=== PATIENT | female | born 1950 | race Caucasian/White ===

== ENCOUNTER 2017-04-21 12:56 | Emergency (ER) | payer OTHER ==
[~2017-04-21] VITALS: Ht 157.5 cm; Wt 110.3 kg
[2017-04-21 12:59] VITALS: Ht 157.5 cm; Wt 110.3 kg
[2017-04-21] MEDS ORDERED: SODI126M NASAL (13:58)
[2017-04-21] MEDS ORDERED: IBUP-1542 PO (13:58)
[2017-04-21] MEDS ORDERED: GUAI473L22 PO (13:58)
--- NOTE | 2017-04-21 14:16 | ERD ---
ER Documentation Chief Complaint Chief Complaint cough x 1 week HPI 66-year-old female complaining of cough 1 week. Patient stated the cough is productive, worse at night. She is unable to sleep because of cough. Patient also reports several episodes of posttussive vomiting. She has chills and body pain. Took ibuprofen 4 days ago. Patient also reports decreased appetite. Patient stated that she feels fatigued while walking since onset of symptoms. Denies shortness of breath. Denies abdominal pain, vomiting, or diarrhea. Denies history of asthma, diabetes, or other medical conditions. ROS All systems reviewed and are negative except as per history of present illness. Medications Home Meds Active Scripts Guaifenesin-Codeine Phosphate* (Guaifenesin* AC Cough Syrup) 473 Ml Liquid, 10 ML PO Q4H Y for COUGH, #120 ML Prov:CHEVY RIVERA. SYSTEMS QA ANALYST 04/21/17 Sodium Chloride (Saline Nasal Mist) 126 Ml Mist, 2 SPRAY NASAL Q2H Y for NASAL CONGESTION, #1 BOTTLE Prov:CHEVY RIVERA. SYSTEMS QA ANALYST 04/21/17 Ibuprofen* (Motrin*) 600 Mg Tab, 600 MG PO Q6H Y for PAIN AND OR ELEVATED TEMP, #30 TAB Prov:CHEVY RIVERA. SYSTEMS QA ANALYST 04/21/17 PMhx/Soc Medical and Surgical Hx: pt denies Medical Hx Physical Exam Vitals Vital Signs Date Time Temp Pulse Resp B/P Pulse Ox O2 Delivery O2 Flow Rate FiO2 04/21/17 12:59 99.0 78 18 186/94 97 Physical Exam General: Well-developed, well-nourished, conscious and coherent, in no distress Skin: Warm and dry without rash, good texture and turgor Head: Normocephalic without evidence of trauma Eyes: Sclera and conjunctivae normal; pupils equal, round, and reactive to light; extraocular movements are intact Ears: Canals are patent. Tympanic membranes are clear Nose/Face: Nasal mucosa erythematous and swollen. Mouth/throat: Mucous membranes are moist. Posterior pharynx mildly erythematous without exudates Neck: Supple without meningismus or adenopathy. Carotids are equal. Trachea midline. No bruits or JVD Chest: Normal AP diameter. Good expansion without retractions. Nontender. Lungs are clear to auscultate bilaterally with good tidal volume Heart: Regular rate and rhythm. No murmur, rub, or gallops heard Abdomen: Soft and nontender without masses, guarding, or rebound. Bowel sounds are active. No hepatosplenomegaly Back: Without spinal or CVA tenderness Pelvis: Nontender to palpation and stable to compression Extremities: Full range of motion. Good strength bilaterally. No clubbing, cyanosis, or edema. Peripheral pulses are intact. Sensation intact Neuro: Alert and oriented 4, GCS 15. Cranial nerves grossly intact. Motor and sensory exams nonfocal. Moves all extremities. Speech clear. Gait normal Procedures/MDM Well-appearing 66-year-old female presented ED with cough 1 week. Patient is afebrile, in no respiratory distress. Lungs are clear to auscultate. I doubt that patient has pneumonia or bronchitis. Likely patient's symptoms are result of viral upper respiratory infection. I cannot rule out flu. However, patient had symptoms for 1 week, I do not feel Tamiflu is indicated. Patient appears well, stable for discharge and outpatient management. Medical decision making shared with patient and family. Education provided to patient and family. Patient and family expressed understanding of the plan. Medications on discharge: Ibuprofen, saline nasal spray, guaifenesin with codeine. Follow-up: Primary care provider in 2-3 days or return to ED if worse. Disclaimer: Inadvertent spelling and grammatical errors are likely due to EHR/ dictation software use and do not reflect on the overall quality of patient care. Also, please note that the electronic time recorded on this note does not necessarily reflect the actual time of the patient encounter. Departure Diagnosis: Primary Impression: URI (upper respiratory infection) URI type: acute nasopharyngitis (common cold) Qualified Code: J00 - Acute nasopharyngitis Condition: Stable Patient Instructions: Adult Self-Care for Colds Ref[facility] Usted se vergara hecho un examen mdico de control que le indica que no est en marquise condicin que requiera tratamiento urgente en el Departamento de Emergencia. Un estudio ms profundo y el tratamiento de carr condicin pueden esperar sin ningn riesgo hasta que usted sea atendida/o en el consultorio de carr mdico o marquise cl gideon. Es responsabilidad suya arreglar marquise grey para el seguimiento del sy. MANEJO DE CONDICIONES NO URGENTES EN EL FUTURO 1) Si usted tiene un mdico de atencin primaria: Usted debera llamar a carr mdico de atencin primaria antes de venir al departamento de emergencia. Despus de las horas de consultorio, carr doctor o carr asociado/a est disponible por telfono. El mdico o enfermero de jesika en el servicio telefnico puede asesorarle por jasvir medio para atender el problema, o sy contrario se puede programar marquise grey. 2) Si usted no tiene un mdico de atencin primaria: Llame al mdico o clnica de referencia que aparece abajo kerri las horas de consultorio para hacer marquise grey para que le vean. CLINICAS: [place] [id number] [phone] [facility] [phone] [facility]. [facility] [phone] [facility]. [place] [id number] [phone] [facility]. [place] [id number] [phone] [facility]. [phone] [address] Additional Instructions: Llame al doctor MAANA y alan marquise GREY PARA DENTRO DE 2-3 BERG.Dgale a la secretaria que nosotros le instruimos hacer esta grey.Avise o llame si carr condicin se empeora antes de la grey. Regresa aqui si peor o no mejor. CHEVY RIVERA NP Apr 21, 2017 14:11
[2017-04-21 15:17] VITALS: BP 146/86
== END 2017-04-21 15:18 | disposition home or self-care (01) ==
LOC: FTE 12:56
DX: J00 Acute nasopharyngitis [common cold] (principal)
CPT/HCPCS: 99283